=== PATIENT | female | born 1985 | race African-American/Black ===

== ENCOUNTER → 2016-12-10 | Outpatient (CLI) | payer OTHER | LOC: MLB 09:36 | PROVIDERS: ATTEND Obstetrics & Gynecology | DX: Z34.90 Encounter for supervision of normal pregnancy, unspecified, unspecified trimester (principal); Z36 Encounter for antenatal screening of mother; O99.019 Anemia complicating pregnancy, unspecified trimester; D57.1 Sickle-cell disease without crisis; O43.899 Other placental disorders, unspecified trimester; O98.819 Other maternal infectious and parasitic diseases complicating pregnancy, unspecified trimester ==

== ENCOUNTER 2017-05-25 11:56 | Outpatient (CLI) | payer OTHER ==
[2017-05-25 12:22] LABS: BASOPHILS % (AUTO) 0.4 % (0.0-2.0); EOSINOPHILS # (AUTO) 0.1 K/uL (0-0.4); EOSINOPHILS % (AUTO) 1.1 % (0.0-4.0); HEMOGLOBIN 8.9 g/dL (12.0-16.0); LYMPHOCYTES # (AUTO) 1.9 K/uL (2.5-16.5); LYMPHOCYTES % (AUTO) 16.1 % (20.5-51.1); MEAN CORPUSCULAR HEMOGLOBIN 24 pg (27-31); MEAN CORPUSCULAR HGB CONC 31 g/dL (33-37); MEAN CORPUSCULAR VOLUME 79 fL (80-94); MONOCYTES # (AUTO) 0.5 K/uL (0.8-1.0); MONOCYTES % (AUTO) 4.4 % (1.7-9.3); NEUTROPHILS # (AUTO) 9.2 K/uL (1.8-7.7); PLATELET COUNT (AUTO) 337 K/uL (140-450); RED BLOOD CELL COUNT(AUTO) 3.67 MIL/uL (4.20-5.40); RED CELL DISTRIBUTION WIDTH 14.3 % (11.6-13.7)
[2017-05-25 13:01] LABS: WHITE BLOOD COUNT (AUTO) 11.7 K/uL (4.8-10.8)
== END 2017-05-25 21:20 | disposition home or self-care (01) ==
LOC: MLB 11:56
PROVIDERS: ATTEND Obstetrics & Gynecology
DX: Z33.1 Pregnant state, incidental (principal)
CPT/HCPCS: 36415; 85025; 86592

== ENCOUNTER 2017-06-16 05:54 | Inpatient (IN) | payer OTHER ==
[~2017-06-16] VITALS: Ht 170.2 cm; Wt 111.1 kg
[2017-06-16] MEDS ORDERED: LACTATED RINGERS 1,000 ML IV SCH (06:01)
[2017-06-16] MEDS ORDERED: IBUPROFEN 800 MG TAB PO PRN ×2 (06:05→07:50)
[2017-06-16] MEDS ORDERED: ceFAZolin 1,000 MG VIAL ONE (06:21)
[2017-06-16 06:44] LABS: BILIRUBIN,URINE 1+ (NEGATIVE); BLOOD, URINE TRACE-L (NEGATIVE); COLOR,URINE YELLOW (YELLOW); LEUKOCYTE ESTERASE ,URINE 1+ (NEGATIVE); NITRITE, URINE NEGATIVE (NEGATIVE); UGLUCOSE NEGATIVE (NEGATIVE)
[2017-06-16 06:47] LABS: BASOPHILS % (AUTO) 0.2 % (0.0-2.0); EOSINOPHILS # (AUTO) 0.1 K/uL (0-0.4); EOSINOPHILS % (AUTO) 0.9 % (0.0-4.0); HEMATOCRIT 27.1 % (36-48); HEMOGLOBIN 8.7 g/dL (12.0-16.0); LYMPHOCYTES # (AUTO) 2.5 K/uL (2.5-16.5); LYMPHOCYTES % (AUTO) 21.7 % (20.5-51.1); MEAN CORPUSCULAR HEMOGLOBIN 24 pg (27-31); MEAN CORPUSCULAR HGB CONC 32 g/dL (33-37); MEAN CORPUSCULAR VOLUME 76 fL (80-94); MONOCYTES # (AUTO) 0.6 K/uL (0.8-1.0); MONOCYTES % (AUTO) 4.9 % (1.7-9.3); NEUTROPHILS # (AUTO) 8.5 K/uL (1.8-7.7); NEUTROPHILS % (AUTO) 72.3 % (42.2-75.2); PLATELET COUNT (AUTO) 333 K/uL (140-450); RED BLOOD CELL COUNT(AUTO) 3.57 MIL/uL (4.20-5.40); RED CELL DISTRIBUTION WIDTH 14.8 % (11.6-13.7); WHITE BLOOD COUNT (AUTO) 11.7 K/uL (4.8-10.8)
[2017-06-16] MEDS ORDERED: CITRIC ACID/SODIUM CITRATE 30 ML UDC PO SCH (07:00)
[2017-06-16 07:07] LABS: ALBUMIN 2.7 g/dL (3.4-5.0); ANION GAP 13.8 (8-16); CARBON DIOXIDE 22.8 mmol/L (21-32); CREATININE 0.6 mg/dL (0.6-1.3); POTASSIUM 3.6 mmol/L (3.5-5.1); TOTAL BILIRUBIN 0.6 mg/dL (0.0-1.0)
[2017-06-16 07:11] VITALS: BP 123/76
[2017-06-16] MEDS ORDERED: OXYTOCIN 10 UNITS/ML VIAL ONE ×2 (07:29→07:35)
[2017-06-16] MEDS ORDERED: BUPIVACAINE-MPF 0.75% 10 ML VIAL INJ ONE (07:29)
[2017-06-16] MEDS ORDERED: ePHEDrine 50 MG/ML VIAL ONE (07:29)
[2017-06-16] MEDS ORDERED: MORPHINE PRES FREE 10 MG/10 ML AMP IV ONE (07:44)
[2017-06-16] MEDS ORDERED: fentaNYL 0.05 MG/ML VIAL ONE (07:44)
[2017-06-16] MEDS ORDERED: MEASLES, MUMPS, AND RUBELLA 1 VIAL SQVAC PRN (07:50)
[2017-06-16] MEDS ORDERED: METHYLERGONOVINE 0.2 MG/ML AMP IM PRN (07:50)
[2017-06-16] MEDS ORDERED: HYDROcodone/APAP 5/325 MG 1 TAB TAB PO PRN (07:50)
[2017-06-16] MEDS ORDERED: TRIMETHOBENZAMIDE 200 MG/2 ML SYR IM PRN (07:50)
[2017-06-16] MEDS ORDERED: BLOOD GLUCOSE MONITORING 1 DEV DEV FS SCH (08:15)
[2017-06-16] MEDS ORDERED: KETOROLAC 60 MG/2 ML VIAL IM PRN (08:15)
[2017-06-16] MEDS ORDERED: NALOXONE 0.4 MG/ML VIAL IVP PRN ×3 (08:15)
[2017-06-16] MEDS ORDERED: diphenhydrAMINE 50 MG/ML VIAL IVP PRN (08:15)
[2017-06-16] MEDS ORDERED: ONDANSETRON 4 MG/2 ML VIAL IVP PRN ×2 (08:15→18:00)
[2017-06-16] MEDS ORDERED: NALBUPHINE 10 MG/ML AMP IVP PRN (08:15)
[2017-06-16 08:23] LABS: APPEARANCE,URINE HAZY (CLEAR)
[2017-06-16 08:24] LABS: RBC,URINE NONE SEEN /HPF (0-5)
--- NOTE | 2017-06-16 09:05 | NUR ---
PATIENT HAS BEEN SCREENED AND CATEGORIZED LOW NUTRITION RISK. PATIENT WILL BE SEEN WITHIN 7 DAYS OF ADMISSION. 06/22/[address]
[2017-06-16] MEDS ORDERED: ONDANSETRON 4 MG/2 ML VIAL ONE (09:21)
[2017-06-16] MEDS ORDERED: diphenhydrAMINE 50 MG/ML VIAL ONE (09:21)
[2017-06-16] MEDS ORDERED: diphenhydrAMINE 50 MG/ML VIAL IVP SCH (09:25)
[2017-06-16] MEDS: OXYTOCIN 20 UNITS/LR PREMIX 1,000 ML IV SCH (16:00)
[2017-06-16] MEDS: DOCUSATE SOD/SENNA 50/8.6 MG 1 TAB PO SCH (21:00)
[2017-06-16] MEDS ORDERED: TEMAZEPAM 15 MG CAP PO PRN (21:00)
[2017-06-17] MEDS: OXYTOCIN 20 UNITS/LR PREMIX 1,000 ML IV SCH (00:12)
[2017-06-17 07:14] LABS: BASOPHILS % (AUTO) 0.3 % (0.0-2.0); EOSINOPHILS # (AUTO) 0.3 K/uL (0-0.4); EOSINOPHILS % (AUTO) 2.1 % (0.0-4.0); HEMATOCRIT 25.1 % (36-48); HEMOGLOBIN 8.3 g/dL (12.0-16.0); LYMPHOCYTES # (AUTO) 1.5 K/uL (2.5-16.5); LYMPHOCYTES % (AUTO) 10.4 % (20.5-51.1); MEAN CORPUSCULAR HEMOGLOBIN 25 pg (27-31); MEAN CORPUSCULAR HGB CONC 33 g/dL (33-37); MEAN CORPUSCULAR VOLUME 75 fL (80-94); MONOCYTES # (AUTO) 0.7 K/uL (0.8-1.0); NEUTROPHILS # (AUTO) 11.8 K/uL (1.8-7.7); NEUTROPHILS % (AUTO) 82.2 % (42.2-75.2); PLATELET COUNT (AUTO) 283 K/uL (140-450); RED BLOOD CELL COUNT(AUTO) 3.35 MIL/uL (4.20-5.40); RED CELL DISTRIBUTION WIDTH 14.9 % (11.6-13.7); WHITE BLOOD COUNT (AUTO) 14.3 K/uL (4.8-10.8)
--- NOTE | 2017-06-17 08:28 | NUR ---
AWAKE AND ALERT RESPONSIVE TO COAL SCREENER TOLERATE INCENTIVE SPIROMETRY THERAPY WELL WITHOUT ADVERSE REACTIONS NOTED ENCOURAGED PATIENT WITH ACKNOWLEDGEMENT TO USE INCENTIVE SPIROMETRY EVERY 1-2 HOURS WHILE AWAKE
[2017-06-17] MEDS: SIMETHICONE 80 MG TAB.CHEW PO PRN ×2 (08:37→13:23)
[2017-06-17] MEDS: oxyCODONE/APAP 5/325 MG 1 TAB TAB PO PRN ×2 (08:38→19:34)
[2017-06-17] MEDS: DOCUSATE SOD/SENNA 50/8.6 MG 1 TAB PO SCH (20:43)
[2017-06-18] MEDS: SIMETHICONE 80 MG TAB.CHEW PO PRN ×3 (02:31→23:42)
[2017-06-18] MEDS: oxyCODONE/APAP 5/325 MG 1 TAB TAB PO PRN ×3 (09:05→23:41)
[2017-06-18] MEDS: DOCUSATE SOD/SENNA 50/8.6 MG 1 TAB PO SCH (21:18)
[2017-06-19] MEDS ORDERED: IBUP-2213 PO (09:44)
== END 2017-06-19 15:45 | disposition home or self-care (01) | DRG 766 ==
LOC: MLD 05:54 → EEVIPCON 05:54 → MFCC 07:35
PROVIDERS: ADMIT Obstetrics & Gynecology; ATTEND Obstetrics & Gynecology
PROC: 10D00Z1 Extraction of Products of Conception, Low, Open Approach (ICD-10-PCS; principal; 2017-06-16 07:30)
PROC: 3E0234Z Introduction of Serum, Toxoid and Vaccine into Muscle, Percutaneous Approach (ICD-10-PCS; 2017-06-18)
DX: O34.211 Maternal care for low transverse scar from previous cesarean delivery (principal); Z23 Encounter for immunization; Z37.0 Single live birth; Z3A.39 39 weeks gestation of pregnancy
CPT/HCPCS: 36415; 80053; 81001; 82948; 85025; 86592; 86886; 86900; 86901; 87086; 90715; J0690; J1200; J1885; J2270; J2405; J2590; J3010; J3490; J7060; J7120